=== PATIENT | female | born 1980 | race Caucasian/White ===

== ENCOUNTER 2020-06-18 08:29 | Emergency (ER) | payer OTHER, SELFPAY ==
[2020-06-18 08:35] VITALS: BP 137/82; PULSE 66; RESP 18; O2SAT 100; BMI 25.0
[2020-06-18 08:38] VITALS: BP 108/72; PULSE 51; RESP 12; O2SAT 97
[2020-06-18] MEDS: ondansetron 2 mg/ML SDV 2 mL 4 MG IVP (09:04)
[2020-06-18] MEDS: diphenhydrAMINE 50 mg/mL SDV 1mL 25 MG IVP (09:04)
[2020-06-18] MEDS: famotidine 20 mg/2 mL INJ 40 MG IVP (09:04)
[2020-06-18 09:05] LABS: Basophils # 0.1 10^3/uL (0.0-0.1); Basophils % 1.6 %; Eosinophils # 0.2 10^3/uL (0.0-0.8); Eosinophils % 6.2 %; Hematocrit 43.6 % (37.0-47.0); Lymphocytes # 1.3 10^3/uL (0.8-4.8); Lymphocytes % 34.2 %; Mean Corpuscular HGB Conc 34.4 g/dL (30.0-36.0); Mean Corpuscular Hemoglobin 31.2 pg (28.0-34.0); Mean Corpuscular Volume 90.6 fL (81-99); Mean Platelet Volume 10.8 fL (7.4-10.4); Monocytes # 0.5 10^3/uL (0.2-0.9); Monocytes % 13.2 %; Neutrophils # 1.72 10^3/uL (1.8-7.7); Neutrophils % 44.5 %; Nucleated Red Blood Cells % 0 %; Platelet Count 170 10^3/cmm (130-400); Red Blood Count 4.81 10^6/uL (4.1-5.3); Red Cell Distribution Width 12.1 % (12.1-15.1); White Blood Count 3.9 10^3/uL (4.0-10.0)
[2020-06-18] MEDS: sodium chloride 0.9% 1,000 ML 999 ML IV (09:05)
[2020-06-18 09:10] LABS: HCG, Serum Qual Negative (Negative)
[2020-06-18 09:18] LABS: Alanine Aminotransferase 18 U/L (0-33); Albumin Level 4.4 g/dL (3.5-5.2); Alkaline Phosphatase 42 IU/L (35-105); Anion Gap 14.1 (5-19); Aspartate Amino Transferase 20 U/L (0-32); Blood Urea Nitrogen 11 mg/dL (6-20); Calcium 9.5 mg/dL (8.5-10.5); Carbon Dioxide 26 mmol/L (22-29); Chloride 103 mmol/L (98-107); Creatinine Clr Calc Pharmacy 113.5185; Globulin 2.6 g/dL (1.3-4.6); Glomerular Filtration Rate 93.6 mL/min (90-130); Glucose 82 mg/dL (65-115); Lipase 30 U/L (13-60); Osmolality Calculated 286 mOsm/kg (285-295); Potassium 4.1 mmol/L (3.5-5.1); Sodium 139 mmol/L (136-145); Total Bilirubin 0.5 mg/dL (0.15-1.2)
--- NOTE | 2020-06-18 09:19 | W.ED.GENADLT ---
HPI - General Adult General: Chief complaint: General Medical Stated complaint: REACTIONS FROM COVID VACC Time Seen by Provider: 06/18/20 08:32 Source: patient Mode of arrival: ambulatory Limitations: no limitations History of Present Illness: HPI narrative: 39-year-old female patient presents to the emergency department with complaints of nausea. She reports received second dose of Covid vaccine on 06/15/2020. She reports continued nausea, she states when she eats she reports nausea. She denies vomiting, denies abdominal pain, denies cough fever chills or urinary symptoms. She is currently here serving [facility]. She reports previous dehydration episodes when administered vaccines. She is requesting IV fluid and something for nausea upon exam. She denies abdominal surgeries. She reports is normally healthy without medical problems. Onset (ago): day(s) (3) Exacerbating factors: none Associated symptoms: Reports nausea; Deny chest pain, diaphoresis, dyspnea, headache(s), rash, palpitations or vomiting Treatments prior to arrival: none Review of Systems General: Reports: 10 or more systems reviewed and unremarkable except in HPI and below Const: Denies: fever(s), chills or diaphoresis Eyes: Denies: blurry vision or eye redness ENMT: Denies: throat pain, dental pain or disequilibrium Card: Denies: chest pain, palpitations or irregular heart rhythm Resp: Denies: dyspnea, productive cough, non-productive cough or wheezing GI: Reports: nausea; Denies: abdominal pain, vomiting or diarrhea : Denies: difficulty voiding or dysuria Musc: Denies: neck pain, back pain or joint pain Skin/Breast: Denies: rash or pruritus Neuro: Denies: headache(s), weakness in extremities or behavioral changes Psych: Denies: anxiety or depression Fam/Lymph: Denies: easy bruising PFS ED PFSH: Medical History Healthy adult Physical Exam Const: COMMON NORMALS: no acute distress, average body habitus, patient oriented x3, healthy appearing, alert and well nourished EXAM LIMITATIONS: no altered mental status and no physical limitations GENERAL APPEARANCE: cooperative, comfortable, well kempt, well developed and well hydrated; not anxious, not combative, not ill appearing and not frail appearing NUTRITIONAL APPEARANCE: thin ORIENTATION/CONSCIOUSNESS: Yes oriented to person, Yes oriented to place and Yes oriented to time HENMT: COMMON NORMALS: normocephalic, atraumatic, EAC's normal, Normal external nose present and moist oral mucous membranes HEAD & SCALP: normal to inspection, normocephalic and atraumatic FACE & SINUS: normal facial exam NOSE: Normal external nose present EXTERNAL AUDITORY CANAL: EAC's normal MOUTH: Normal oral and palatal mucosa present, lip normal and tongue normal Eye: COMMON NORMALS: Equal, round and reactive pupils present and EOMs intact bilaterally GENERAL EYE: appearance normal, both eyes and all related structures PUPIL: Yes Equal, round and reactive pupils present Neck/C-Spine: COMMON NORMALS: full ROM, no lymphadenopathy and supple GENERAL: Yes normal visual inspection and Yes trachea midline CERVICAL SPINE: Yes cervical ROM normal Lymph: LYMPHATIC: no lymphadenopathy noted Chest: COMMONS NORMALS: normal inspection of the chest and normal palpation of entire chest wall Resp: COMMON NORMALS: normal respiratory effort, No retractions, No use of accessory muscles and clear to auscultation bilaterally EFFORT & INSPECTION: Yes able to speak in complete sentences AUSCULTATION: clear to auscultation bilaterally, no wheezes and lung sounds not diminished Cardio: COMMON NORMALS: regular rate, regular rhythm, S1 normal heart sound present, S2 normal heart sound present and Peripheral pulses 2+ throughout RATE: regular rate RHYTHM: regular rhythm HEART SOUNDS: S1 normal heart sound present and S2 normal heart sound present PERIPHERAL PULSES: Peripheral pulses 2+ throughout GI: COMMON NORMALS: Normal to inspection, nondistended, normoactive bowel sounds present, Soft to palpation and non-tender; negative for No hepatosplenomegaly present INSPECTION: Yes normal to inspection, No abdominal wall ecchymosis, No abdominal distension, No central obesity, No Kehr's sign positive and No Abdominal panniculus present AUSCULTATION: Yes normoactive bowel sounds PALPATION: Yes Soft to palpation and No No hepatosplenomegaly present : COMMON NORMALS: Yes no CVA tenderness BLADDER/KIDNEY EXAM: Yes no CVA tenderness Back/Pelvis: COMMON NORMALS: no CVA tenderness, thoracic and lumbar spine normal to inspection, no thoracic nor lumbar tenderness, thoraco-lumbar ROM normal and straight leg raise negative bilaterally Extremity: COMMON NORMALS: normal to inspection and capillary refill normal Neuro: COMMON NORMALS: patient oriented x3 and no focal motor deficits SENSORIUM/ORIENTATION: Yes alert, Yes oriented to person, Yes oriented to place and Yes oriented to time GAIT: Yes Normal gait present MOTOR EXAM: 5/5 motor strength present throughout Psych: COMMON NORMALS: mental status grossly normal, Normal thought process present and cooperative APPEARANCE: Yes well kempt ACTIVITY/MOTOR BEHAVIOR: Yes appropriate eye contact THOUGHT PROCESS: Normal thought process present Skin: COMMON NORMALS: no rashes or lesions noted, no wounds and turgor normal GENERAL SKIN EXAM: no rashes or lesions noted, elasticity normal, turgor normal, skin not dry and no ecchymo Course Vital Signs: Vital signs: Vital Signs Pulse Rate 50 L 06/18/20 09:47 Respiratory Rate 18 06/18/20 09:47 Blood Pressure 104/67 06/18/20 09:47 Pulse Oximetry 100 06/18/20 09:47 MDM - General Adult MDM Narrative: Medical decision making narrative: 39-year-old female patient presents to the emergency department with continued nausea status post second dose of Covid vaccine. She questions of Covid vaccine could be the cause of her persistent nausea. She requested IV fluids and antinausea medications here in the ED as previous symptoms in the past with vaccines provided by the . Zofran, Benadryl and Pepcid administered, nausea resolved. She did not complain of abdominal pain. Urinalysis without abnormalities. She reports feeling better, I advised she could have viral illness such as gastritis or peptic ulcer disease along with possibility of post Covid vaccine adverse reaction. She did not experience shortness of breath or throat swelling. She received prescription of Zofran and Pepcid. Advised to follow-up with her primary care if symptoms continued. Lipase was normal, chemistry unremarkable. White blood count slightly low at 3.9. Lab Data: Labs: Lab Results 06/18/20 06/18/20 06/18/20 Range/Units 08:47 08:47 08:47 WBC 3.9 L (4.0-10.0) 10^3/ uL RBC 4.81 (4.1-5.3) 10^6/u L Hgb 15.0 (11.5-15.3) g/dL Hct 43.6 (37.0-47.0) % MCV 90.6 (81-99) fL MCH 31.2 (28.0-34.0) pg MCHC 34.4 (30.0-36.0) g/dL RDW 12.1 (12.1-15.1) % Plt Count 170 (130-400) 10^3/c mm MPV 10.8 H (7.4-10.4) fL Neut % (Auto) 44.5 % Lymph % (Auto) 34.2 % [place] % (Auto) 13.2 % Eos % (Auto) 6.2 % Baso % (Auto) 1.6 % Neut # (Auto) 1.72 L (1.8-7.7) 10^3/u L Lymph # (Auto) 1.3 (0.8-4.8) 10^3/u L [place] # (Auto) 0.5 (0.2-0.9) 10^3/u L Eos # (Auto) 0.2 (0.0-0.8) 10^3/u L Baso # (Auto) 0.1 (0.0-0.1) 10^3/u L Nucleated RBC % (a uto) 0 % Nucleated RBCs # 0.0 /100WBC Sodium 139 (136-145) mmol/L Potassium 4.1 (3.5-5.1) mmol/L Chloride 103 (98-107) mmol/L Carbon Dioxide 26 (22-29) mmol/L Anion Gap 14.1 (5-19) BUN 11 (6-20) mg/dL Creatinine 0.7 (0.5-0.9) mg/dL GFR Calculation 93.6 (90-130) mL/min Glucose 82 (65-115) mg/dL Calculated Osmolal ity 286 (285-295) mOsm/k g Calcium 9.5 (8.5-10.5) mg/dL Total Bilirubin 0.5 (0.15-1.2) mg/dL AST 20 (0-32) U/L ALT 18 (0-33) U/L Alkaline Phosphata se 42 (35-105) IU/L Total Protein 7.0 (6.6-8.7) g/dL Albumin 4.4 (3.5-5.2) g/dL Globulin 2.6 (1.3-4.6) g/dL Lipase 30 (13-60) U/L HCG, Qual Negative (Negative) Urine Color (Yellow) Urine Appearance (CLEAR) Urine pH (5-7) Ur Specific Gravit y (1.005-1.030) Urine Protein (Negative) Urine Glucose (UA) (Normal) Urine Ketones (Negative) Urine Blood (Negative) Urine Nitrate (Negative) Urine Bilirubin (Negative) Prot Sulfosalicyli c Acd (Negative) Urine Urobilinogen (Negative) mg/dL Ur Leukocyte Chery ase (Negative) 06/18/20 Range/Units 09:45 WBC (4.0-10.0) 10^3/ uL RBC (4.1-5.3) 10^6/u L Hgb (11.5-15.3) g/dL Hct (37.0-47.0) % MCV (81-99) fL MCH (28.0-34.0) pg MCHC (30.0-36.0) g/dL RDW (12.1-15.1) % Plt Count (130-400) 10^3/c mm MPV (7.4-10.4) fL Neut % (Auto) % Lymph % (Auto) % [place] % (Auto) % Eos % (Auto) % Baso % (Auto) % Neut # (Auto) (1.8-7.7) 10^3/u L Lymph # (Auto) (0.8-4.8) 10^3/u L [place] # (Auto) (0.2-0.9) 10^3/u L Eos # (Auto) (0.0-0.8) 10^3/u L Baso # (Auto) (0.0-0.1) 10^3/u L Nucleated RBC % (a uto) % Nucleated RBCs # /100WBC Sodium (136-145) mmol/L Potassium (3.5-5.1) mmol/L Chloride (98-107) mmol/L Carbon Dioxide (22-29) mmol/L Anion Gap (5-19) BUN (6-20) mg/dL Creatinine (0.5-0.9) mg/dL GFR Calculation (90-130) mL/min Glucose (65-115) mg/dL Calculated Osmolal ity (285-295) mOsm/k g Calcium (8.5-10.5) mg/dL Total Bilirubin (0.15-1.2) mg/dL AST (0-32) U/L ALT (0-33) U/L Alkaline Phosphata se (35-105) IU/L Total Protein (6.6-8.7) g/dL Albumin (3.5-5.2) g/dL Globulin (1.3-4.6) g/dL Lipase (13-60) U/L HCG, Qual (Negative) Urine Color Yellow (Yellow) Urine Appearance Clear (CLEAR) Urine pH 8 H (5-7) Ur Specific Gravit y 1.015 (1.005-1.030) Urine Protein Neg (Negative) Urine Glucose (UA) Norm (Normal) Urine Ketones Negative (Negative) Urine Blood Neg (Negative) Urine Nitrate Negative (Negative) Urine Bilirubin Neg (Negative) Prot Sulfosalicyli c Acd Negative (Negative) Urine Urobilinogen Norm (Negative) mg/dL Ur Leukocyte Chery ase Negative (Negative) Discharge Plan Discharge Patient Disposition: Home Clinical Impression: Nausea Adverse reaction to vaccine Qualifiers: Encounter type: initial encounter Qualified Code(s): T50.Z95A - Adverse effect of other vaccines and biological substances, initial encounter Gastritis Qualifiers: Gastritis type: unspecified gastritis Chronicity: acute Gastritis bleeding: without bleeding Qualified Code(s): K29.00 - Acute gastritis without bleeding Condition: Stable Prescriptions: New Zofran 4 mg tablet 4 mg PO Q4H 5 Days Qty: 14 RF: 0 Pepcid 20 mg tablet 20 mg PO BID Qty: 20 RF: 0 Discharge Orders: Discharge ED (Routine); Ordered 06/18/20 Ordered By: Kenzie Lindquist Discharge Diet: Usual diet Discharge Activity: Resume usual activity Patient Instructions: Gastritis (ED), Acute Nausea and Vomiting (ED), Opioid Safety Activity Restrictions/Additional Instructions: Take it easy over the next 48 hours, avoid vigorous exercise until better, avoid fried greasy fatty spicy foods until improved. May take Tylenol as needed for generalized pain from Covid vaccine. Push fluids to avoid dehydration Return to emergency department if you develop abdominal pain, fever or chills Follow-up with your primary care provider if nausea persist despite Zofran/Pepcid use Coding Level of Care Code ED [employer] for [facility] Fwd Exam Comprehensive
[2020-06-18 09:47] VITALS: BP 104/67; PULSE 50; RESP 18; O2SAT 100
[2020-06-18 09:50] LABS: Add Urine Microscopic? NO
[2020-06-18 09:58] LABS: Bilirubin Urine Neg (Negative); Blood Urine Neg (Negative); Glucose Urine UA Norm (Normal); Ketones Urine Negative (Negative); Leukocyte Esterase Urine Negative (Negative); Nitrate Urine Negative (Negative); Protein Urine Neg (Negative); Specific Gravity, Urine 1.015 (1.005-1.030); Sulfosalicylic Acid Urine Negative (Negative); Urine Appearance Clear (CLEAR); Urine Color Yellow (Yellow); Urobilinogen Urine Norm (Negative); pH Urine 8 (5-7)
== END 2020-06-18 10:16 | disposition home or self-care (01) ==
PROVIDERS: Emergency Provider Nurse Practitioner Family
DX: R11.0 Nausea (principal); K29.00 Acute gastritis without bleeding; T50.Z95A Adverse effect of other vaccines and biological substances, initial encounter
CPT/HCPCS: 80053; 81003; 83690; 84703; 85025; 96361; 96374; 96375; 99283; J1200; J2405; J3490; J7030